=== PATIENT | female | born 1960 | race Caucasian/White ===

== ENCOUNTER 2016-06-25 21:03 | Emergency (ER) | payer OTHER ==
[2016-06-25 21:34] LABS: BASOPHIL 0.3 % (0-2); EOSINOPHIL 0.8 % (0-5); LYMPHOCYTE 42.9 % (15-48); MCH 28.2 pg (25.0-31.0); MCHC 33.3 g/dL (32.0-36.0); MCV 84.6 fL (78.0-100.0); MONOCYTE 6.2 % (0-12); MPV 9.8 fL (6.0-9.5); NEUTROPHIL 49.8 % (41-80); PLT 330 K/uL (150-400); RBC 4.61 M/uL (4.20-5.40); RDW 12.8 % (11.5-14.0); WBC 9.2 K/uL (4.0-10.5)
[2016-06-25 21:45] LABS: INR 0.91 (0.9-1.2); PROTHROMBIN TIME 11.9 SECONDS (11.7-14.0); PTT 20.3 SECONDS (23.2-31.4)
[2016-06-25 21:53] LABS: ALBUMIN 4.2 g/dL (3.5-5.0); BILIRUBIN - TOTAL 0.3 mg/dL (0.1-1.0); CREATININE 0.8 mg/dL (0.5-1.0); GLOBULIN (CALCULATION) 2.8 g/dL (2.2-4.2); MAGNESIUM 2.04 mg/dL (1.40-2.10); POTASSIUM 3.1 mmol/L (3.5-5.1)
[2016-06-25 21:55] LABS: CKMB 1.71 ng/mL (0.97-4.94); MYOGLOBIN 29 ng/mL (26-65); PRO-BNP 49 pg/mL (0-125); TROPONIN T < 0.010 ng/mL
[2016-06-25 22:06] LABS: FT4 (FREE T4) 1.15 ng/dL (0.93-1.70); TSH (THYROID STIM HORMONE) 5.97 uIU/mL (0.270-4.200)
== END 2016-06-26 00:45 | disposition home or self-care (01) ==
LOC: FER 21:03
PROVIDERS: Emergency Medicine Emergency Medical Services
DX: R00.2 Palpitations (principal); I49.3 Ventricular premature depolarization; I10 Essential (primary) hypertension; Z79.82 Long term (current) use of aspirin; Z79.899 Other long term (current) drug therapy; Z88.0 Allergy status to penicillin; Z88.1 Allergy status to other antibiotic agents
CPT/HCPCS: 36415; 71010; 80053; 82550; 82553; 83735; 83874; 83880; 84439; 84443; 84484; 85025; 85379; 85610; 85730; 93005